=== PATIENT | male | born 1950 | race Two or more races ===

== ENCOUNTER 2017-10-30 09:49 | Emergency (ER) | payer MEDICARE, OTHER ==
[2017-10-30] MEDS: DEXAMETHASONE 10 MG/ML 1 ML INJ IM (10:44)
== END 2017-10-30 11:08 | disposition home or self-care (01) ==
LOC: FTE 09:49
DX: L23.9 Allergic contact dermatitis, unspecified cause (principal)
CPT/HCPCS: 96372; 99284-25